=== PATIENT | female | born 1945 | race Caucasian/White ===

== ENCOUNTER 2019-07-31 21:06 | Emergency (ER) | payer MEDICARE ==
[2019-07-31] MEDS ORDERED: OMEPRAZOLE40 MG PO (21:27)
[2019-07-31] MEDS ORDERED: FLUOXETINE HCL20 MG PO (21:27)
[2019-07-31] MEDS ORDERED: CALCITONIN200 IU/Act NS (21:27)
[2019-07-31] MEDS ORDERED: FLUOXETINE90 MG PO (21:27)
[2019-07-31] MEDS ORDERED: AUGMENTIN 875-1 EAC1 PO (21:55)
[2019-07-31 22:01] VITALS: BP 109/63
== END 2019-07-31 22:05 | disposition home or self-care (01) ==
LOC: ED 21:06
DX: S61.451A Open bite of right hand, initial encounter (principal); K21.9 Gastro-esophageal reflux disease without esophagitis; Z23 Encounter for immunization; Z87.891 Personal history of nicotine dependence; W55.01XA Bitten by cat, initial encounter
CPT/HCPCS: 90715

== ENCOUNTER → 2021-07-10 | Outpatient (CLI) | payer MEDICARE ==
[~2021-07-10] MED LIST: AUGMENTIN 875-1 EAC1 PO; CALCITONIN200 IU/Act NS; FLUOXETINE HCL20 MG PO; FLUOXETINE90 MG PO; OMEPRAZOLE40 MG PO
== END ==
LOC: LAB 19:22
DX: Z20.822 Contact with and (suspected) exposure to COVID-19 (principal)

== ENCOUNTER → 2021-12-22 | Outpatient (CLI) | payer MEDICARE | LOC: LAB 18:32 | DX: R09.81 Nasal congestion (principal); Z20.822 Contact with and (suspected) exposure to COVID-19 ==

== ENCOUNTER → 2021-12-29 | Outpatient (CLI) | payer MEDICARE | LOC: LAB 09:50 | DX: L65.9 Nonscarring hair loss, unspecified (principal) ==